=== PATIENT | female | born 1955 | race Caucasian/White ===

== ENCOUNTER → 2018-05-12 | Outpatient (CLI) | payer BC ==
[~2018-05-12] MED LIST: ADV100/50 INH; ALB17R INH; ASPI-1471 PO; BP PILL; CET10 PO; LIPITOR; MON10 PO; VALS1TAB67 PO
--- NOTE | 2018-05-16 09:05 | RADIOLOGY IMAGING REPORT ---
FACILITY: [facility] PATIENT NAME: DENISE RIVERS : [id number] MR: [id number] V: [id number] EXAM DATE: [id number] ORDERING PHYSICIAN: GUNNAR QUINTANILLA TECHNOLOGIST: Luz Lala PROCEDURE:BILATERAL DIGITAL SCREENING MAMMOGRAM WITH CAD ASSISTED INTERPRETATION & 3D TOMOSYNTHESIS COMPARISON:Prior mammograms dated 04/14/17, 02/24/16, 01/23/15, 01/21/14, 12/26/12, 09/29/11 INDICATIONS:SCREENING FINDINGS: A small amount of fibroglandular tissue is seen throughout the breasts. The parenchymal pattern has remained stable allowing for difference in mammographic technique & patient positioning. There is no evidence of malignant appearing mass, malignant appearing calcification or other secondary sign of malignancy in either breast. DIAGNOSTIC CATEGORY 1--NEGATIVE. RECOMMENDATIONS: ROUTINE MAMMOGRAM AND CLINICAL EVALUATION. IMPRESSION: BIRADS 1: Negative. No significant abnormality is seen. Dictated by: Paige Infante M.D. on 05/12/2018 at 15:04 Transcribed by: MATIAS on 05/15/2018 at 7:53 Approved by: Paige Infante M.D. on 05/16/2018 at 9:04 [facility]
== END ==
LOC: MAMO 00:36
PROVIDERS: ATTEND Obstetrics & Gynecology
DX: Z12.31 Encounter for screening mammogram for malignant neoplasm of breast (principal)
CPT/HCPCS: 77063; 77067